=== PATIENT | female | born 1990 | race Hispanic/Latino ===

== ENCOUNTER 2021-04-02 16:42 | Observation (INO) | payer MEDICAID ==
[~2021-04-02] VITALS: Ht 154.9 cm; Wt 95.7 kg
[2021-04-02 16:55] VITALS: BP 112/72
[2021-04-02 19:36] LABS: APPEARANCE,URINE Clear (CLEAR); BILIRUBIN,URINE Negative (NEGATIVE); COLOR,URINE Yellow (YELLOW); GLUCOSE, URINE (UA) Negative (NEGATIVE); KETONES,URINE Negative (NEGATIVE); LEUKOCYTE ESTERASE ,URINE Negative (NEGATIVE); NITRATE,URINE Negative (NEGATIVE); OCCULT BLOOD,URINE Negative (NEGATIVE); PH,URINE 6.5 (5.0-8.0); PROTEIN,URINE Negative (NEGATIVE); UROBILINOGEN,URINE 0.2 mg/dL (0.2-1.0)
[2021-04-02] MEDS ORDERED: LACTATED RINGERS 1000ML IV SCH (20:00)
[2021-04-02] MEDS ORDERED: PROMETHAZINE HCL 25 MG/ML 1ML AMPULE IM ONE (20:00)
== END 2021-04-02 21:05 | disposition home or self-care (01) ==
LOC: EDH 16:42 → LDH 16:43
PROVIDERS: ADMIT Specialist; ATTEND Specialist
DX: O26.893 Other specified pregnancy related conditions, third trimester (principal); R10.2 Pelvic and perineal pain; R60.0 Localized edema; R12 Heartburn; O21.2 Late vomiting of pregnancy; Z3A.29 29 weeks gestation of pregnancy; Z79.899 Other long term (current) drug therapy
CPT/HCPCS: 36415; 81003; 82947; 96360; 96372; G0378 ×4; G0379; J2550; J7120

== ENCOUNTER 2023-04-06 16:07 | Emergency (ER) | payer MEDICAID, OTHER ==
[~2023-04-06] VITALS: Ht 152.4 cm; Wt 97.5 kg
[2023-04-06] MEDS ORDERED: FLUORESCEIN SODIUM 1 STRIP STRIP ONE (17:47)
[2023-04-06] MEDS ORDERED: ACETAMINOPHEN 325 MG TAB PO ONE (18:00)
[2023-04-06] MEDS ORDERED: TETANUS/DIPHTHERIA TOXOID [ADULT] 0.5 ML VIAL IM ONE (18:00)
[2023-04-06] MEDS ORDERED: CIPR2.5D18 OP (18:12)
[2023-04-06] MEDS ORDERED: ACET-2893 PO (18:13)
[2023-04-06 18:50] VITALS: BP 119/79; PULSE 76; RESP 16; O2SAT 97
== END 2023-04-06 19:02 | disposition home or self-care (01) ==
LOC: EDH 16:07
DX: S05.02XA Injury of conjunctiva and corneal abrasion without foreign body, left eye, initial encounter (principal); M79.7 Fibromyalgia; Z88.5 Allergy status to narcotic agent; Z88.6 Allergy status to analgesic agent; Z98.890 Other specified postprocedural states; X08.8XXA Exposure to other specified smoke, fire and flames, initial encounter; Y93.89 Activity, other specified; Y92.89 Other specified places as the place of occurrence of the external cause; Y99.8 Other external cause status
CPT/HCPCS: 81025; 90471; 90714

== ENCOUNTER 2024-12-25 13:49 | Emergency (ER) | payer MEDICAID ==
[~2024-12-25] VITALS: Ht 152.4 cm; Wt 97.5 kg
[~2024-12-25 13:49] MED LIST: ACET-3797 PO; CIPR2.5D18 OP
[2024-12-25] MEDS ORDERED: TERB30CR8 TP (16:38)
[2024-12-25] MEDS ORDERED: AMOX500T2 PO (16:38)
--- NOTE | 2024-12-25 16:39 | ERN ---
General Chief Complaint: FOOT INJURY/PAIN Stated Complaint: BLISTERS TO LEFT FOOT Time Seen by MD: 13:52 Time Seen by Midlevel: 13:52 Source: patient History of Present Illness Initial Comments Female presenting to the emergency department for evaluation of blisters to her left ankle that have been ongoing for six months. No other symptoms reported Allergies: Coded Allergies: ibuprofen (Unverified Allergy, Mild, SWELLING, 07/23/14) codeine (Unverified Allergy, Unknown, 04/02/21) Home Meds Active Scripts Terbinafine HCl (Terbinafine HCl) 1 % Cream..g., 1 APPL TP BID for 14 Days, #30 GM 0 Refills Prov:ROBERT MANNING 12/25/24 Amoxicillin (Amoxicillin) 500 Mg Tablet, 1 TAB PO BID for 10 Days, #20 TAB 0 Refills Prov:ROBERT MANNING 12/25/24 Acetaminophen (Acetaminophen ER) 650 Mg Tablet.er, 650 MG PO TID, #30 TAB Prov:MARIBELL POLANCO V [employer]IST[employer] 04/06/23 Ciprofloxacin HCl (Ciprofloxacin HCl) 0.3 % Drops, 2 DROP OP [id number] for 7 Days, #10 ML Prov:MARIBELL POLANCO V [employer] ASSISTANT 04/06/23 Past Medical History Past Medical History: Fibromyalgia, Other Medical History Other: GEST. DM, OVARIAN CYST Past Surgical History: Other Surgical History Other: D AND C Female( History) : 4 Para: 0 ROS Dictation CONSTITUTIONAL: Negative except for HPI HEAD/FACE: Negative except for HPI EENT: Negative except for HPI RESPIRATORY: Negative except for HPI GASTROINTESTINAL/ABDOMINAL: Negative except for HPI GENITOURINARY: Negative except for HPI MUSCULOSKELETAL: Negative except for HPI INTEGUMENTARY: Negative except for HPI NEUROLOGICAL/PSYCH: Negative except for HPI HEMATOLOGIC/LYMPHATIC: Negative except for HPI All Systems Negative, Except as noted above. 13 point review of systems assessed and all negative except for above. Physical Exam Physical Exam Dictation PHYSICAL EXAM: GENERAL: alert,, awake oriented x 3 HEENT: EOMI, Sclera non icteric, moist mucosa NECK: Supple, no JVD, trachea midline LUNGS: Clear breath sounds bilaterally. No wheezes HEART: Regular rate and rhythm. Normal S1 and S2, without murmurs ABD: Abdomen soft, nontender. Bowel sounds present EXT: No clubbing or cyanosis, NEURO: Alert and oriented to person, follows commands MDM MDM: Differential diagnosis: Athlete's foot, cellulitis, callus There are no social concerns with this patient. Prescription drug management Prescriptions will include: Terbinafine topical, amoxicillin Medical management and examination interpretation discussions were had by me with other qualified healthcare professionals as indicated for the patient's care. ED Course Vital Signs Date Time Temp Pulse Resp B/P (MAP) Pulse Ox O2 Delivery O2 Flow Rate FiO2 12/25/24 16:50 98.4 82 14 124/74 95 Room Air* 0 21 12/25/24 13:59 98.4 87 14 130/83 98 Room Air* 0 21 12/25/24 13:50 98.4 87 14 130/83 95 Room Air 0 DX & DISP Disposition: Discharge Departure Impression: Primary Impression: Tinea pedis Condition: Stable Scripts Terbinafine HCl (Terbinafine HCl) 1 % Cream..g. 1 APPL TP BID for 14 Days, #30 GM 0 Refills Prov: ROBERT MANNING 12/25/24 Amoxicillin (Amoxicillin) 500 Mg Tablet 1 TAB PO BID for 10 Days, #20 TAB 0 Refills Prov: ROBERT MANNING 12/25/24 Referrals: SELF,REFERRAL (PCP) FREDY CIFUENTES MD Time of Disposition: 16:37 I have reviewed the case, and I agree with, Diagnosis and Plan I performed the substantive portion of the visit. I have reviewed and personally made and approve the management plan that is documented in the note by myself or the KRISTIE. I acknowledge for responsibility for the patient's management plan. ROBERT MANNING Dec 25, 2024 16:38
[2024-12-25 16:50] VITALS: BP 124/74; PULSE 82; RESP 14; TEMP 98.4; O2SAT 95
== END 2024-12-25 16:51 | disposition home or self-care (01) ==
LOC: EDH 13:49
DX: B35.3 Tinea pedis (principal); E11.9 Type 2 diabetes mellitus without complications; M79.7 Fibromyalgia; Z79.899 Other long term (current) drug therapy; Z88.5 Allergy status to narcotic agent; Z88.6 Allergy status to analgesic agent; Z98.890 Other specified postprocedural states
CPT/HCPCS: 99283